=== PATIENT | male | born 1990 | race Caucasian/White ===

== ENCOUNTER 2017-08-03 08:04 | Emergency (ER) | payer BC ==
--- NOTE | 2017-08-03 08:14 | Emergency Department Record ---
History of Present Illness - General Chief Complaint: Dizziness Stated Complaint: DIZZINESS/HIGH BP Time Seen by Provider: 08/03/17 08:12 Source: Patient, Family Mode of Arrival: Ambulatory Limitations: No limitations - History of Present Illness Initial Comments: 27 yo female presents with elevated blood pressure, a feeling of dizziness, and a vague tightness in the chest. He reports he has been very stressed recently due to his job demands. He checked his BP this morning and it was 180/90 with the symptoms. He denies any significant past medical history. No leg pain or calf pain. No cough. No recent illness. His father developed CAD in his mid 50's. He is typically healthy without problems. He quit smoking 3 years ago. No DM, elevated cholesterol or known HTN. Normally his BP is 120/80 at the doctor. PCP is Nemo Cortez MD Complaint: Dizziness, Lightheadedness Onset/Timin -: Hour(s) Timing: Sudden onset Description: Lightheadedness History of Same: Yes History of Trauma: No Improves With: Nothing Worsens With: Nothing Associated Symptoms: Other - [place] Coma Scale Eye Response: (4) Open spontaneously Motor Response: (6) Obeys commands Verbal Response: (5) Oriented [place] Total: 15 - Related Data Home Medications Medication Instructions Recorded Confirmed Last Taken No Home Med [NO HOME MEDS] 08/03/17 08/03/17 Unknown Allergies Allergy/AdvReac Type Severity Reaction Status Date / Time No Known Drug Allergies Allergy Verified 08/03/17 08:11 Travel Screening - Travel/Exposure Within Last 30 Days Have you traveled within the last 30 days?: No Review of Systems Constitutional: Denies: Chills, Fever, Weakness Eyes: Denies: Eye discharge ENT: Denies: Congestion, Throat pain Respiratory: Denies: Cough, Dyspnea, Hemoptysis, Stridor, Wheezes Cardiovascular: Reports: Chest pain. Denies: Palpitations, Syncope Endocrine: Denies: Fatigue, Polydipsia, Polyuria Gastrointestinal: Denies: Abdominal pain, Diarrhea, Nausea, Vomiting Genitourinary: Denies: Dysuria, Frequency, Hematuria Musculoskeletal: Denies: Arthralgia, Back pain, Joint swelling, Myalgia Skin: Denies: Bruising, Change in color, Lesions Neurological: Reports: Other (lightheaded dizziness feeling). Denies: Abnormal gait, Confusion, Headache, Numbness, Weakness Psychiatric: Reports: As per HPI, Anxiety Hematological/Lymphatic: Denies: Blood Clots, Easy bleeding, Easy bruising, Swollen glands Physical Exam - General General Appearance: Alert, Oriented x3, Cooperative, No acute distress Limitations: No limitations - Head Head exam: Normal inspection - Eye Eye exam: Normal appearance, PERRL. negative: Conjunctival injection, Scleral icterus - ENT ENT exam: Normal exam, Mucous membranes moist Ear exam: Normal external inspection Nasal Exam: Normal inspection Mouth exam: Normal external inspection Teeth exam: Normal inspection Throat exam: Normal inspection - Neck Neck exam: Normal inspection, Full ROM. negative: Tenderness - Respiratory Respiratory exam: Normal lung sounds bilaterally. negative: Respiratory distress - Cardiovascular Cardiovascular Exam: Regular rate, Normal rhythm, Normal heart sounds Peripheral Pulses: 2+: Radial (R), Radial (L) - GI/Abdominal GI/Abdominal exam: Soft. negative: Tenderness - Rectal Rectal exam: Deferred - exam: Deferred - Extremities Extremities exam: Normal inspection, Full ROM, Normal capillary refill. negative: Calf tenderness, Pedal edema, Tenderness - Back Back exam: Reports: Normal inspection, Full ROM. Denies: Muscle spasm, Rash noted, Tenderness - Neurological Neurological exam: Alert, CN II-XII intact, Normal gait, Oriented X3. negative : Abnormal gait, Altered, Motor sensory deficit - Psychiatric Psychiatric exam: Normal affect, Normal mood - Skin Skin exam: Dry, Intact, Normal color, Warm Course Vital Signs 08/03/17 08:09 Temperature 98.5 F Pulse Rate 89 Respiratory 16 Rate Blood Pressure 163/108 Pulse Ox 100 - Reevaluation(s) Reevaluation #1: EKG NSR rate 88, intervals normal, axis normal, RSR' in V1, ST no acute changes. 08/03/17 08:13 08/03/17 09:16 The labs were reviewed No acute changes of the CBC, CMP, Troponin and D-dimer 08/03/17 09:17 The TSH is normal 08/03/17 09:18 The repeat blood pressure is 144/99 08/03/17 09:23 No acute process on the CXR 08/03/17 11:21 I Called the cardiology clinic to inform the need for follow appointment this week BP 122/90. Patient much improved 08/03/17 12:09 The repeat troponin is negative DC to follow up with the specialty clinic and PCP BP has come down on its own Medical Decision Making - Lab Data Result diagrams: 08/03/17 08:27 08/03/17 08:27 Disposition Disposition: Discharge Clinical Impression: Atypical chest pain, Elevated blood pressure reading Disposition: Home, Self-Care Condition: (1) Good Instructions: Chest Pain (ED), Hypertension (ED) Additional Instructions: Return if you have any symptoms or concerns You have a 1:45pm appointment with Dr Smiley [facility] tomorrow Bring your ID and Insurance Information Enter through the main hospital entrance Referrals: [facility] [Provider Group] MICHAELLE SMILEY M.D. [MEDICAL DOCTOR] - Forms: Patient Portal Access Time of Disposition: 12:10 Quality - Quality Measures Quality Measures: N/A - Blood Pressure Screening Does Patient Have Any of the Following: No Blood Pressure Classification: Hypertensive Reading Systolic Measurement: 130 Diastolic Measurement: 102 Screening for High Blood Pressure: < Pre-Hypertensive BP, F/U Documented > [ [id number]] Pre-Hypertensive Follow-up Interventions: Referral to alternative/primary care provider.
[2017-08-03 08:30] LABS: BASO % 0.2 % (0-6); EOS % 5.4 % (0-6); GRAN % 61.3 % (47-80); HEMATOCRIT 46.9 % (42.0-52.0); HEMOGLOBIN 16.4 gm/dl (14.0-18.0); LYMPH % 25.2 % (16-45); MEAN CORPUSCULAR HEMOGLOBIN 31.1 pg (27-33); MEAN PLATELET VOLUME 9.4 fl (7.4-10.4); MONO % 7.9 % (0-9); PLATELET COUNT 321 K/uL (130-400); RED BLOOD COUNT 5.27 M/uL (4.40-5.70); RED CELL DISTRIBUTION WIDTH 12.3 % (11.5-14.5); WHITE BLOOD COUNT W/O DIFF 6.6 K/uL (4.2-12.2)
[2017-08-03 08:48] LABS: ALB/GLOB RATIO 1.6 (1.1-1.8); ALBUMIN 4.7 g/dL (4.0-5.0); ALKALINE PHOSPHATASE 56 U/L (40-129); ALT/SGPT 36 U/L (<41); AST/SGOT 22 U/L (10.0-50.0); BLOOD UREA NITROGEN 12 mg/dL (6-20); CREATININE 1.2 mg/dL (0.7-1.2); EST GLOMERULAR FILTRATION RATE > 60 mL/min; GLUCOSE,RANDOM 133 mg/dL (74-109); TOTAL PROTEIN 7.7 g/dL (6.6-8.7)
[2017-08-03 09:00] LABS: THYROID STIMULATING HORMONE 1.82 uIU/mL (0.270-4.20)
--- NOTE | 2017-08-03 09:24 | RADIOLOGY REPORT ---
EXAM: CHEST, TWO VIEWS HISTORY: CHEST PAIN, CHEST DISCOMFORT, DIZZINESS. TECHNIQUE: PA and lateral views of the chest were obtained. Comparison: None. FINDINGS: The heart size is normal. The lungs appear expanded with no acute infiltrate seen. No pleural effusion or pneumothorax evident. There is some mild deformity of the right sixth rib posteriorly which may be due to old injury or surgery and clinical correlation is suggested. IMPRESSION: 1. NO ACUTE INFILTRATE EVIDENT. 2. MILD DEFORMITY POSTERIORLY IN THE RIGHT SIXTH RIB PRESUMABLY DUE TO OLD INJURY OR SURGERY. IF NO SUCH HISTORY, RIGHT RIB SERIES WOULD BE SUGGESTED. JOB NUMBER: [id number] MTDD
== END 2017-08-03 12:29 | disposition home or self-care (01) ==
LOC: ER 08:04
DX: R07.89 Other chest pain (principal); R03.0 Elevated blood-pressure reading, without diagnosis of hypertension; R42 Dizziness and giddiness; Z87.891 Personal history of nicotine dependence
CPT/HCPCS: 71046; 80053; 84443; 84484; 85025; 85379; 93005; 93010; 99284